=== PATIENT | female | born 1990 | race Caucasian/White ===

== ENCOUNTER 2020-09-04 02:13 | Emergency (ER) | payer MEDICAID ==
[~2020-09-04] VITALS: Ht 152.4 cm; Wt 79.0 kg
[2020-09-04 02:57] LABS: BASOPHILS % 0.9 % (0.0-2.0); EOSINOPHILS % 2.6 % (0.0-5.0); HEMATOCRIT. 46.2 % (36.0-48.0); LYMPHOCYTES % 23.9 % (20.0-50.0); MEAN CORPUSCULAR VOLUME 95.5 fL (81.0-99.0); MEAN PLATELET VOLUME 6.8 fl (7.4-10.4); MONOCYTES % 5.3 % (2.0-8.0); NEUTROPHILS % 67.3 % (40.0-76.0); PLATELET 274 x1000/uL (130-400); RED BLOOD CELL COUNT 4.84 mill/uL (4.2-5.4); RED CELL DISTRIBUTION WIDTH 12.7 % (11.6-14.6)
[2020-09-04 02:58] LABS: CHLORIDE 106 mEq/L (98-107)
[2020-09-04 03:30] LABS: HCG SCREEN NEGATIVE
[2020-09-04] MEDS ORDERED: KETOROLAC 15MG/ML VIAL IV ONE (04:30)
[2020-09-04 04:35] VITALS: BP 103/71
[2020-09-04] MEDS: KETOROLAC 15MG/ML VIAL IM ONE (04:38)
== END 2020-09-04 04:51 | disposition home or self-care (01) ==
LOC: ER 02:13
DX: R07.89 Other chest pain (principal); F17.200 Nicotine dependence, unspecified, uncomplicated; E78.00 Pure hypercholesterolemia, unspecified
CPT/HCPCS: 36415; 71045; 80048; 81025; 84484; 84703; 85025; 93005; 96372; 99285; J1885